=== PATIENT | male | born 1965 | race Native Hawaiian/Other Pacific Islander ===

== ENCOUNTER 2020-11-14 18:45 | Emergency (ER) | payer OTHER ==
[~2020-11-14] VITALS: Ht 170.2 cm; Wt 83.0 kg
[~2020-11-14 18:45] MED LIST: FORTAMET1000 MG PO; LISI10TA11 PO
[2020-11-14 18:59] VITALS: TEMP 99.2
[2020-11-14 19:30] VITALS: BP 172/118
[2020-11-14 19:36] LABS: PLATELET COUNT 314 K/uL (142-355)
[2020-11-14 19:55] LABS: POTASSIUM 4.6 mmol/L (3.6-5.2)
== END 2020-11-14 19:50 | disposition home or self-care (01) ==
LOC: ED 18:45
PROVIDERS: Family Medicine
DX: R07.89 Other chest pain (principal); N28.9 Disorder of kidney and ureter, unspecified; R77.8 Other specified abnormalities of plasma proteins; Z53.29 Procedure and treatment not carried out because of patient's decision for other reasons
CPT/HCPCS: 36415; 80053; 80307; 81000; 82550; 84484; 85027; 93005; 99284

== ENCOUNTER 2020-12-24 20:59 | Emergency (ER) | payer OTHER ==
[~2020-12-24] VITALS: Ht 170.2 cm; Wt 83.9 kg
[2020-12-24 22:00] LABS: PLATELET COUNT 242 K/uL (142-355)
[2020-12-24 22:13] LABS: POTASSIUM 4.1 mmol/L (3.6-5.2)
[2020-12-25 00:05] VITALS: BP 152/100; TEMP 98.8
== END 2020-12-25 00:05 | disposition home or self-care (01) ==
LOC: ED 20:59
PROVIDERS: Hospitalist
DX: U07.1 COVID-19 (principal); N18.9 Chronic kidney disease, unspecified; I10 Essential (primary) hypertension
CPT/HCPCS: 36415; 80048; 85027; 87635; 96360; 96375; 99284; J2930; U0003

== ENCOUNTER 2021-01-25 08:28 | Inpatient (IN) | payer OTHER ==
[~2021-01-25] VITALS: Ht 170.2 cm; Wt 80.5 kg
[2021-01-25 08:28] VITALS: BP 160/99; TEMP 96.4
[2021-01-25 09:05] VITALS: BP 142/94
[2021-01-25 09:10] LABS: PLATELET COUNT 459 K/uL (142-355)
[2021-01-25 09:13] LABS: POTASSIUM 5.2 mmol/L (3.6-5.2)
[2021-01-25 09:18] LABS: PARTIAL THROMBOPLASTIN TIME 29.5 SECONDS (24.5-33.6)
[2021-01-25 16:00] VITALS: BP 148/86; TEMP 97.6
[2021-01-25 16:50] VITALS: BP 143/99; TEMP 97.7
[2021-01-25 17:44] VITALS: BP 143/99; TEMP 97.7; Ht 170.2 cm; Wt 80.5 kg
--- NOTE | 2021-01-25 17:59 | NUR ---
PT ARRIVED ON MED SURG FLOOR FROM ER AT 1600. RECEIVED REPORT FROM ER NURSE AT 1530. PT A&O X4. VITAL SIGNS STABLE, BS=76, PT GIVEN A DINNER TRAY. PT HAS 20GA LEFT FOREARM INTACT AND INFUSES WITH NO DIFFICULTY. NS INFUSING AT 125ML/HR PER DR DAVILA. PT STATED THAT HE TAKES LISINOPRIL, METFORMIN AND GLIPIZIDE. WILL BRING HOME MEDS. NAD NOTED. PT AMBULATES WITH NO DIFFICULTY. PT HAD VANCOMYCIN AT 1518 IN ER AND TROUGH SCHEDULED FOR FRIDAY AT 1300. PTS DX PNUEMONIA, PER DR DAVILA BREATHING TX CHANGED TO PRN.
--- NOTE | 2021-01-25 18:44 | NUR ---
PT ATE 100% OF DINNER TRAY. RE-CHECKED BS AFTER DINNER AND SNACKS TAKEN TO PT. BS=86
[2021-01-25 20:00] VITALS: BP 134/92; TEMP 97.7
[2021-01-26 00:22] VITALS: BP 135/92; TEMP 98
--- NOTE | 2021-01-26 03:19 | NUR ---
Patient was screened as a high risk patient for RD to quiana as assessemnt: Admitted with pneumonia, GRACY, Hypoglycemia, abscess, cellulitis, and has a history of DM, recent Covid 19 pneumonia, COPD, and smokes 1 ppd and use marijuana occassionally, on a 2000 calorie ADA diet plan and labs reveal lactic acid, WBC, RDW, platelet count, BUN, Creat, troponin, B Shayna Peptide all elevtaed and gl, Hgb, Hct, MCH, MCHC, CO2, Alt, Alk Po4, and alb all depressed. RD reviewed all labs and medications and MD's notes, oj notes and the patient is eating 100% of meals and snask and BS after meals and snack at 86 and on metformin, glipizide, 55YO male and is 5'7 inches at 176.1 lbs. and BMI at 27.6 and is overweight and IBW = 148+/-10% (133 to 163 lbs.) and kcal needs for IBW x 25 = 1700, x 30 = 2000, x 35 = 2300 to 2400, x 40 = 2600 to 2700 kcal/day. protein needs x .8 to 1.5 = 54 to 101 grams per day and fluids for IBW x 25 to 40 = 1600 to 2700 ml/cc per day. RD available as needed. RD Recommendaitons: 1-Monitor labs 2-OT, PT to work with the patient as needed 3-Add a MVI daily 4-Add Vitamin C 500 mg BID 5-Add ZNSO4 220 mg per day and d/c in 14 days 6-Stress HBV Protein foods 7-BUN and Creat elevated with ASIF but alb depressed and may want to add Protein as MD feels is appropriate for the patient 8-[place] all food perfernces, note on the diet card and offer substitutes with all meals. 9-Increase food high in Fe 10-May want to give 3 meals and 3 snaks a day to help with BS levels 11-Increase foods high in calcium- may want ot add a yogurt or milk with meals- low fat 12-Add High Fiber to the diet plan
[2021-01-26 04:00] VITALS: BP 134/90; TEMP 97.9
[2021-01-26 08:21] VITALS: BP 148/98; TEMP 97.4
--- NOTE | 2021-01-26 08:51 | NUR ---
FSBS TO BE Q 4 HOURS X [address] DAVILA TO START 01/25/2021 AT 2000 FSBS 01/25/2021 AT 2000 IS 102, PATIENT ALERT AND ORIENTED DENIES ANY COMPLAINTS AT THIS TIME, PROVIDED BETZY CRACKERS AND APPLE JUICE FOR SNACK. AT 0000 ON 01/26/21 FSBS 101 DENIES ANY SYMPTOMS AND PATIENT DID ACCEPT TWO PACKS OF CRACKERS AND PEANUT BUTTER DUE "STILL A LITTLE HUNGERY!" BUT DENIES ANY SIGNS OR SYMPTOMS OF HYPOGLYCEMIA AT THIS TIME. AT 0400 ON 01/26/21 FSBS IS NOW 114 PATIENT RESTING QUIETLY WITH EYES CLOSED, NO DISTRESS NOTED AT THIS TIME. CALL LIGHT WITHIN REACH AND WILL CONTINUE TO MONITOR.
--- NOTE | 2021-01-26 09:29 | NUR ---
01/26/[address] BONNER HERE REVIEWED LABS ALSO NOTIFED OF CRITICAL LAB POSTITIVE STAFF HEMO.RESPIRATORY HERE TO DBTAIN ABG.CC 01/26/21 [address] BONNER ABOUT ABG RESULT.CC 01/26/21 0915 RESP PRESENT IN ROOM SMARTVEST IN PROGRESS ON PT.HIGH FLOW LOWERED PER RESP AR 40 LITERS/50 PERCENT.MAY USE N/C AT 4LPM WHILE AMBULATING IN ROOM TOLERATED. CALL LIGHT WITHIN REACH.CC
[2021-01-26] MEDS ORDERED: GLIM4TAB PO (10:20)
[2021-01-26 11:11] LABS: PLATELET COUNT 322 K/uL (142-355)
[2021-01-26 12:00] VITALS: BP 155/109; TEMP 97.9
--- NOTE | 2021-01-26 12:01 | NUR ---
DR. FERRARI NOTIFIED OF PATIENT BP OF 155/109. DR. FERRARI STATED THAT SHE WAS OKAY WITH IT FOR RIGHT NOW.
[2021-01-26 16:00] VITALS: BP 145/96; TEMP 97.8
[2021-01-26 20:00] VITALS: BP 147/106; TEMP 97.9
[2021-01-27] VITALS: BP 147/101; TEMP 97.9
--- NOTE | 2021-01-27 00:45 | NUR ---
RT AT BEDSIDE AT THIS TIME. HELD BREATHING TREATMENT DUE TO TACHYCARDIC EPISODE. WILL CONTINUE TO MONITOR. BS-169 AT THIS TIME.
[2021-01-27 04:00] VITALS: BP 130/91; TEMP 97.9
--- NOTE | 2021-01-27 04:08 | NUR ---
BS- 177 AT THIS TIME. NO S/S OF ACUTE DISTRESS AT THIS TIME. PT. SITTING UP IN A HIGH-FOWLERS POSITION WITH SIDE RAILS UP TIMES TWO WITH BED IN LOWEST POSITION WITH CALL LIGHT WITHIN REACH WATCHING TV. NS @ 125 INFUSING TO 22G TO LEFT FOREARM. WILL CONTINUE TO MONITOR.
[2021-01-27 04:39] LABS: PLATELET COUNT 287 K/uL (142-355)
[2021-01-27 05:00] LABS: POTASSIUM 5.6 mmol/L (3.6-5.2)
[2021-01-27 08:00] VITALS: BP 157/105; TEMP 97.5
--- NOTE | 2021-01-27 08:43 | NUR ---
PT WAS GIVEN 3 ALBUTERAL TX 1 WAS 0745 HR 111-117. TOLERATED WELL. SECOND TX WAS GIVEN AT 0800 HR 111-116 TOLERATED WELL. THEN THIRD TXGIVEN AT 0805 HR 116-117. TOLERATED TX. WELL. THIS TX WAS GOVEM TO HELP WITH POTASSIUM.
[2021-01-27 12:00] VITALS: BP 153/108; TEMP 97.4
[2021-01-27] MEDS ORDERED: [UNRECOGNIZED DRUG - CODE] PO (15:31)
[2021-01-27] MEDS ORDERED: SODIUM BICAR650 MG PO (15:32)
[2021-01-27] MEDS ORDERED: LEVOFLOXACIN500 MG PO (15:33)
[2021-01-27] MEDS ORDERED: GLIM2TAB PO (15:34)
== END 2021-01-27 16:44 | disposition home or self-care (01) | DRG 637 ==
LOC: ED 08:28 → MED/SURG 16:00
PROVIDERS: Hospitalist; ADMIT Internal Medicine; ATTEND Internal Medicine
DX: E11.649 Type 2 diabetes mellitus with hypoglycemia without coma (principal); J18.8 Other pneumonia, unspecified organism; I12.0 Hypertensive chronic kidney disease with stage 5 chronic kidney disease or end stage renal disease; Z86.16 Personal history of COVID-19; E87.5 Hyperkalemia; N17.8 Other acute kidney failure; E55.9 Vitamin D deficiency, unspecified; E11.22 Type 2 diabetes mellitus with diabetic chronic kidney disease; N18.5 Chronic kidney disease, stage 5
CPT/HCPCS: 36415; 80048; 80053; 80202; 80320; 81000; 82550; 82947; 82948; 83605; 83880; 84484; 85027; 85610; 85730; 87040; 87635; 93005; 94640; 94664; 94760; 96360; 96361; 96365; 96366; 96375; 99284; J0360; J0456; J0696; J1650; J1815; J1940; J1956; J2405; J3370; J7060; U0003

== ENCOUNTER 2021-03-04 17:12 | Inpatient (IN) | payer OTHER ==
[2021-03-04] VITALS (7 sets, daily range): BP systolic 124–160; BP diastolic 82–114; TEMP 97.7–98.1; Ht 170.2 cm; Wt 85.5 kg
[~2021-03-04] VITALS: Ht 170.2 cm; Wt 85.5 kg
[~2021-03-04 17:12] MED LIST changes: +GLIM2TAB PO; +GLIM4TAB PO; +LEVOFLOXACIN500 MG PO; +SODIUM BICAR650 MG PO; +[UNRECOGNIZED DRUG - CODE] PO
[2021-03-04 17:55] LABS: PLATELET COUNT 365 K/uL (142-355)
[2021-03-04 18:08] LABS: PARTIAL THROMBOPLASTIN TIME 26.3 SECONDS (24.5-33.6)
[2021-03-04 18:12] LABS: POTASSIUM 4.9 mmol/L (3.6-5.2)
[2021-03-05 00:10] VITALS: BP 151/105; TEMP 97.9
[2021-03-05 04:00] VITALS: BP 137/100; TEMP 97.9
[2021-03-05 08:00] VITALS: BP 144/107; TEMP 97.9
[2021-03-05 09:27] LABS: PLATELET COUNT 314 K/uL (142-355)
[2021-03-05 10:02] LABS: POTASSIUM 3.9 mmol/L (3.6-5.2)
[2021-03-05 12:00] VITALS: BP 149/102; TEMP 97.9
[2021-03-05 16:00] VITALS: BP 139/105; TEMP 98.1
[2021-03-05 19:50] VITALS: BP 137/92; TEMP 97.7
[2021-03-06] VITALS (7 sets, daily range): BP systolic 126–156; BP diastolic 92–115; TEMP 97.3–98
[2021-03-06 05:38] LABS: PLATELET COUNT 317 K/uL (142-355)
[2021-03-06 05:52] LABS: POTASSIUM 4.2 mmol/L (3.6-5.2)
[2021-03-06] MEDS ORDERED: METF500T PO (09:00)
[2021-03-06] MEDS ORDERED: GLIM4TAB PO (09:01)
[2021-03-06] MEDS ORDERED: EDLUAR10 MG SL (09:02)
[2021-03-07 04:26] VITALS: BP 147/100; TEMP 97.6
[2021-03-07 04:52] LABS: PLATELET COUNT 326 K/uL (142-355)
[2021-03-07 05:05] LABS: POTASSIUM 4.1 mmol/L (3.6-5.2)
[2021-03-07 08:00] VITALS: BP 141/103; TEMP 98.1
[2021-03-07 12:00] VITALS: BP 149/106; TEMP 97.9
[2021-03-07 16:00] VITALS: BP 155/110; TEMP 97.8
[2021-03-07 20:00] VITALS: BP 155/110; TEMP 97.4
[2021-03-08] VITALS: BP 156/102; TEMP 97.3
[2021-03-08 04:00] VITALS: BP 151/111; TEMP 97.5
[2021-03-08 05:22] LABS: PLATELET COUNT 292 K/uL (142-355)
[2021-03-08 05:31] LABS: POTASSIUM 4.1 mmol/L (3.6-5.2)
[2021-03-08 08:00] VITALS: BP 150/106; TEMP 97.8
[2021-03-08 12:00] VITALS: BP 164/110; TEMP 98.1
[2021-03-08 16:00] VITALS: BP 147/108; TEMP 97.8
[2021-03-08 20:00] VITALS: BP 143/99; TEMP 98.2
[2021-03-09] VITALS: BP 147/103; TEMP 97.9
[2021-03-09 04:00] VITALS: BP 148/108; TEMP 98.3
[2021-03-09 04:58] LABS: PLATELET COUNT 273 K/uL (142-355)
[2021-03-09 05:06] LABS: POTASSIUM 4.1 mmol/L (3.6-5.2)
[2021-03-09 08:00] VITALS: BP 148/107; TEMP 97.5
[2021-03-09 12:00] VITALS: BP 148/107; TEMP 97.5
[2021-03-09 16:00] VITALS: BP 149/106; TEMP 97.8
[2021-03-09 20:11] VITALS: BP 123/92; TEMP 98.6
[2021-03-10] VITALS: BP 139/86; TEMP 98.1
[2021-03-10 04:00] VITALS: BP 138/98; TEMP 98.1
[2021-03-10 04:32] LABS: PLATELET COUNT 265 K/uL (142-355)
[2021-03-10 08:00] VITALS: BP 138/99; TEMP 97.5
[2021-03-10 12:00] VITALS: BP 129/89; TEMP 98
[2021-03-10 16:00] VITALS: BP 127/88; TEMP 97.6
[2021-03-10 20:27] VITALS: BP 144/105; TEMP 97.5
[2021-03-11] VITALS (7 sets, daily range): BP systolic 115–159; BP diastolic 89–117; TEMP 97.6–98.4
[2021-03-11 06:01] LABS: PLATELET COUNT 299 K/uL (142-355)
[2021-03-11 06:16] LABS: POTASSIUM 4.2 mmol/L (3.6-5.2)
[2021-03-12 04:28] VITALS: BP 141/108; TEMP 97.8
[2021-03-12 06:00] LABS: PLATELET COUNT 339 K/uL (142-355)
[2021-03-12 08:00] VITALS: BP 142/100; TEMP 97.9
== END 2021-03-12 12:40 | disposition short-term general hospital (02) | DRG 280 ==
LOC: ED 17:12 → MED/SURG 18:30
PROVIDERS: ADMIT Hospitalist; ATTEND Internal Medicine Endocrinology, Diabetes & Metabolism
PROC: 05HM33Z Insertion of Infusion Device into Right Internal Jugular Vein, Percutaneous Approach (ICD-10-PCS; 2021-03-07)
PROC: B543ZZA Ultrasonography of Right Jugular Veins, Guidance (ICD-10-PCS; 2021-03-07)
PROC: 5A1D70Z Performance of Urinary Filtration, Intermittent, Less than 6 Hours Per Day (ICD-10-PCS; principal; 2021-03-08)
PROC: 5A1D70Z Performance of Urinary Filtration, Intermittent, Less than 6 Hours Per Day (ICD-10-PCS; 2021-03-09)
DX: I13.2 Hypertensive heart and chronic kidney disease with heart failure and with stage 5 chronic kidney disease, or end stage renal disease (principal); I21.4 Non-ST elevation (NSTEMI) myocardial infarction; N18.6 End stage renal disease; N17.8 Other acute kidney failure; E11.22 Type 2 diabetes mellitus with diabetic chronic kidney disease; I50.9 Heart failure, unspecified; I25.10 Atherosclerotic heart disease of native coronary artery without angina pectoris; K21.9 Gastro-esophageal reflux disease without esophagitis; M15.8 Other polyosteoarthritis
CPT/HCPCS: 36415; 36571; 80048; 80053; 80074; 81000; 82550; 83880; 84300; 84484; 85027; 85610; 85730; 87635; 93005; 96374; 96375; 99284; J0360; J1200; J1650; J1815; J1940; J2270; J3490; U0003